=== PATIENT | male | born 1975 | race Caucasian/White ===

== ENCOUNTER 2023-11-03 16:56 | Emergency (ER) | payer BC, OTHER ==
[~2023-11-03] VITALS: Ht 160 cm; Wt 80.7 kg
[~2023-11-03 16:56] MED LIST: BENA5TAB
[2023-11-03 17:08] VITALS: BP 159/102; RESP 16; TEMP 98; O2SAT 100
[2023-11-03 17:12] VITALS: PULSE 112
== END 2023-11-03 17:31 | disposition left against medical advice (07) ==
LOC: ER 16:56
DX: H57.8A9 Foreign body sensation, unspecified eye (principal); E11.9 Type 2 diabetes mellitus without complications
CPT/HCPCS: 99281